=== PATIENT | female | born 1975 | race Caucasian/White ===

== ENCOUNTER → 2017-08-18 12:17 | Outpatient (CLI) | payer OTHER, SELFPAY ==
--- NOTE | 2017-08-18 12:23 | RAD_ITS ---
STUDY: X-RAY - RIGHT KNEE REASON FOR EXAM: Female, 41 years old. Medial knee pain after being hit in knee by a wave TECHNIQUE: 4 view(s) of the knee. COMPARISON: None. FINDINGS: Normal visualized distal femur. Normal visualized proximal tibia and fibula. Normal proximal tibiofibular articulation. Normal medial femorotibial compartment. Normal lateral femorotibial compartment. Normal patellofemoral articulation. The soft tissue structures are unremarkable. RAD/Knee 4 or More Views IMPRESSION: Normal x-ray examination of the knee. Electronically Signed: Magdaleno Gonzalez MD at 17:24 EDT , Service support ,
== END ==
PROVIDERS: Family Provider Family Medicine; PCP Family Medicine; Visit Provider Family Medicine
DX: M25.561 Pain in right knee (principal)
CPT/HCPCS: 73564

== ENCOUNTER 2017-08-30 11:00 | Outpatient (RCR) | payer OTHER, SELFPAY ==
--- NOTE | 2017-08-02 11:45 | HP.PTEVAL_ITS ---
Patient's Visit Information DAPHNEY ALLEN is a 41 year old F referred to Physical Therapy by MD HAILEY David with a diagnosis of ACL SPRAIN. Date of Evaluation: 08/02/17 Physical Therapist: Kenia Garcia - Visit Plan Frequency: 2-3x /Week Duration: 4-6 Weeks Plan: RIGHT KNEE US. CORE STRENGTH AND STABILITY. ALYSE LE ROM, STRETCHING AND STRENGTHENING. NO LAQ'S. HEP INSTRUCTION. - Subjective Subjective: Diagnosis: ACL STRAIN RIGHT. 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 PATIENT WAS DOING CROSS FIT BEFORE INJURING HER KNEE. Disability: NO. Present symptoms: RIGHT MEDIAL KNEE PAIN. Present since: June. Pain Scale: WORST 6/10, LEAST 0/10. Currently: 0/10. Com[place] a [place] STANDING IN THE O[place] WHEN A WAVE CAME. FELT IT POP. Symptoms at onset: RIGHT MEDIAL KNEE. Worse: LALGUS STRESS, TURNING IN BED, TWISTING KNEE. Better: ALEVE, HOT BATH. Disturbed sleep: NO. Previous history/Previous treatment: UNREMARKABLE. Accidents: NO. Unexplained weight loss: NO. Imaging: NONE. PMH: UNREMARKABLE. OTHER: ONE FAMILY PHYSICIAN VISIT. - Objective THIS PATIENT AMBULATES INDEP'LY INTO PT WITHOUT ANY ASSISTIVE DEVICES AND NO OBVIOUS LIMPING. SHE DOES HAVE ALYSE ANKLE VARUS. ALYSE LE LIGHT TOUCH SENSATION IS INTACT AND SYMMETRICAL. LLE ROM AND STRENGTH IS WFL. RIGHT LE STRENGHT: HIP 4/5, KNEE EXT 3-/5, KNEE FLEX 3-/5, ANKLE 5/5. SHE HAS MILD EDEMA LOCALIZED TO THE RIGHT KNEE. IN SUPINE WITH A HEEL SLIDE HER RIGHT KNEE ROM = FULL EXT TO 130 DEG FLEX HOWEVER SHE HAS 140 DEG FLEX ON THE LEFT. SHE HAS GOOD PATELLAR MOBILITY OF THE RIGHT KNEE AND LACHMANS TEST IS DIFFICULT TO PERFORM BUT APPEARS TO BE NEGATIVE. SHE HAS TENDERNESS ALONG THE MEDIAL COLLATERAL LIGAMENT. VARUS AND VALGUS STRESSING IS NEGATIVE. POSITIVE KEY TEST. CORE STRENGTH: POOR. TREATMENT: PATIENT WAS SEEN TODAY FOR US TO THE RIGHT MEDIAL KNEE X 8 MIN AT 50% 1.3 W/CM2 WITH PATINET IN SITTING. HEP INST FOR QS'S , SLR'S AND SLR'S WITH ER FOR VMO ACTIVATION. PATIENT TOLERATED THE US AND EX WELL. - Goals Goal 1:: DECREASE RIGHT KNEE EDEMA Goal Time Frame: 4-6 Weeks Goal 2:: DECEREASE C/O RIGHT KNEE PAIN Goal Time Frame: 4-6 Weeks Goal 3:: IMPROVE RIGHT LE FUNCTIONAL ROM Goal Time Frame: 4-6 Weeks Goal 4:: IMRPOVE RIGHT LE FUNCTIONAL STRENGTH TO ALL FOR RETURN TO PRIOR LEVEL OF FUNCTION. Goal 5:: INDEP HEP FOR CONTINUED IMPROVEMENT ONCE FORMAL PT CONCLUDES. Goal Time Frame: 4-6 Weeks - Rehabilitation Potential Rehabilitation Potential: Good - Anticipated Interventions Patient/Client Instruction: Educate patient on: Condition, Plan of Care, Risk Factors, Benefits of Fitness Program For the Purpose of:: To improve self management Therapeutic Exercise to Include: Strength training, Balance training, Coordination, Agility training, Flexibilty training, Active ROM For the Purpose of:: To improve ability of physical actions for home/community/ work/leisure Cryotherapy (ice pack, ice massage): Yes Ultrasound (thermal/non thermal): Yes For the Purpose of:: To decrease pain, To decrease swelling/inflammation, To increase ROM Thank you for the opportunity to evaluate your patient. For Medicare and Medicare HMO plans, please review the plan of care and approve it. It will need to be FAXED BACK to us at [phone] for Medicare purposes. Please let me know if there are questions or concerns regarding this plan of care. Physician Signature: Date:
--- NOTE | 2017-08-18 14:49 | HP.PTREVAL_ITS ---
Enrique Barry MD, It has been my pleasure to treat DAPHNEY ALLEN over the last 8 visits for ACL SPRAIN. Please see the progress note below for an update on the physical therapy plan of care! Subjective: PATIENT REPORTS SHE IS DOING REALLY GOOD. RIGHT MEDIAL KNEE PAIN IS RANGING 0-1/10. 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 Objective/Function: PATIENT IS MAKING GOOD PROGRESS TOWARD ALL PT GOALS HOWEVER SHE STILL HAS SOME SIGNIFICANT DEFICITS. RIGHT LE STRENGHT: HIP 4/5, KNEE EXT 3-/5, KNEE FLEX 4/5, ANKLE 5/5. SHE HAS MILD EDEMA LOCALIZED TO THE RIGHT KNEE. IN SUPINE WITH A HEEL SLIDE HER RIGHT KNEE ROM = FULL EXT TO 145 DEG FLEX. SHE HAS TENDERNESS ALONG THE MEDIAL COLLATERAL LIGAMENT. RIGHT HIP IR/ER STRENGTH TESTING DOES PROVOKE SOME RIGHT MEDIAL KNEE PAIN. POSITIVE KEY TEST. CORE STRENGTH: POOR. LEFS HAS IMPROVED FROM 60 TO 75. SINGLE LEG CALF RAISING RIGHT LE PROVOKES MILD RIGHT KNEE PAIN. PUSHING UP FROM PARTIAL SQUAT ALSO PROVOKES MILD RIGHT MEDIAL KNEE PAIN. PATIENT IS MAKING GOOD PROGRESS WITH PT BUT STATED CONTINUES TO HAVE DEFICITS IN THE RIGHT KNEE. RECOMMEND CONTINUED PT DUE TO PROGRESS BEING MADE AND ROOM FOR FUTHER IMPROVEMENT AND ALSO RECOMMEND PHYSICIAN FOLLOW UP DUE TO CONTINUED QUAD WEAKNESS. Plan Plan: CONT PER POC - PATIENT IS ALREADY SCHEDULED AND AGREEABLE TO CONTINUING AFTER ASSESSMENT TODAY. RIGHT KNEE US prn. CORE STRENGTH AND STABILITY. ALYSE LE ROM, STRETCHING AND STRENGTHENING. NO LAQ'S. HEP INSTRUCTION. Goals Goal 1:: DECREASE RIGHT KNEE EDEMA Goal Time Frame: 4-6 Weeks Goal Progress: Progressing Goal 2:: DECEREASE C/O RIGHT KNEE PAIN Goal Time Frame: 4-6 Weeks Goal Progress: Progressing Goal 3:: IMPROVE RIGHT LE FUNCTIONAL ROM Goal Time Frame: 4-6 Weeks Goal Progress: Progressing Goal 4:: IMRPOVE RIGHT LE FUNCTIONAL STRENGTH TO ALL FOR RETURN TO PRIOR LEVEL OF FUNCTION. Goal Progress: Progressing Goal 5:: INDEP HEP FOR CONTINUED IMPROVEMENT ONCE FORMAL PT CONCLUDES. Goal Time Frame: 4-6 Weeks Goal Progress: Progressing Anticipated Interventions Patient/Client Instruction: Educate patient on: Condition, Plan of Care, Risk Factors, Benefits of Fitness Program For the Purpose of:: To improve self management Therapeutic Exercise to Include: Strength training, Balance training, Coordination, Agility training, Flexibilty training, Active ROM For the Purpose of:: To improve ability of physical actions for home/community/ work/leisure Cryotherapy (ice pack, ice massage): Yes Ultrasound (thermal/non thermal): Yes For the Purpose of:: To decrease pain, To decrease swelling/inflammation, To increase ROM Please do not hesitate to contact me at [phone] by phone or Fax: if you have questions or concerns regarding this new plan of care! Sincerely, Kenia Garcia
--- NOTE | 2017-08-30 11:45 | HP.PTDCSUM ---
HP - PT D/C Summary It has been my pleasure to treat DAPHNEY ALLEN under orders from Enrique Barry MD, for the diagnosis of ACL SPRAIN for a total of 13 visit(s). Discharge Date: Please see the following information for a summary of their discharge status. - Subjective Subjective: PATIENT REPORTS SHE ISN'T HAVING ANY PROBLEMS. NO COMPLAINTS OR QUESTIONS. - Pain R knee Pain Intensity (Out of 10): 0 - Overall Improvement % Improvement: 99 - Objective Objective/Function: PATIENT HAS MADE GOOD PROGRESS TOWARD ALL PT GOALS. RIGHT LE STRENGHT: HIP 5/5, KNEE EXT 4/5, KNEE FLEX 5/5, ANKLE 5/5. SHE NO LONGER HAS TENDERNESS ALONG THE MEDIAL COLLATERAL LIGAMENT. RIGHT HIP IR/ER STRENGTH TESTING DOES NOT PROVOKE SOME RIGHT MEDIAL KNEE PAIN. CORE STRENGTH: FAIR. LEFS HAS IMPROVED FROM 75 TO 77. SINGLE LEG CALF RAISING RIGHT LE DOES NOT PROVOKE RIGHT KNEE PAIN. PUSHING UP FROM PARTIAL SQUAT ALSO DOES NOT PROVOKE MILD RIGHT MEDIAL KNEE PAIN TODAY. INDEP HEP. - Goals Goal 1:: DECREASE RIGHT KNEE EDEMA Goal Progress: Progressing Goal 2:: DECEREASE C/O RIGHT KNEE PAIN Goal Progress: Progressing Goal 3:: IMPROVE RIGHT LE FUNCTIONAL ROM Goal Progress: Progressing Goal 4:: IMRPOVE RIGHT LE FUNCTIONAL STRENGTH TO ALL FOR RETURN TO PRIOR LEVEL OF FUNCTION. Goal Progress: Progressing Goal 5:: INDEP HEP FOR CONTINUED IMPROVEMENT ONCE FORMAL PT CONCLUDES. Goal Progress: Progressing - Plan Plan: D/C TO HEP AT THIS TIME. INSTRUCTED PATIENT TO FOLLOW UP DR. SHAH IF SHE IS NOT ABLE TO RESUME ALL ACTIVITIES PAINFREE. - D/C Information If there are questions or concerns regarding this patient's physical therapy, please feel free to call me at [phone]. Thank you for the referral of this patient. Sincerely, Kenia Garcia
== END 2017-08-30 19:00 | disposition home or self-care (01) ==
LOC: PT 11:00
PROVIDERS: Family Provider Family Medicine; PCP Family Medicine; Visit Provider Family Medicine
DX: S83.519D Sprain of anterior cruciate ligament of unspecified knee, subsequent encounter (principal)
CPT/HCPCS: 97035; 97110; 97161; 97530

== ENCOUNTER 2021-03-05 18:19 | Outpatient (CLI) | payer OTHER, SELFPAY ==
[2021-03-05] MEDS: 0.9% Saline Lock 10 ML Syringe IV (18:27)
[2021-03-05 18:30] VITALS: BP 124/68; PULSE 70; RESP 16; TEMP 36.9; O2SAT 100; BMI 43.2
--- NOTE | 2021-03-05 19:11 | NURSING ---
Pt c/o of feeling suddenly flushed and nausiated. VS taken. Stable. after a few min feeling went away. Pt requested that rate be slowed. Rate changed from 310 to 200cc/hr.
[2021-03-05 19:12] VITALS: BP 145/75; PULSE 78; RESP 16; TEMP 37; O2SAT 100
[2021-03-05 19:44] VITALS: BP 124/70; PULSE 70; RESP 16; TEMP 37.1; O2SAT 100
[2021-03-05 20:35] VITALS: BP 134/54; PULSE 72; RESP 16; TEMP 37.1; O2SAT 98
== END 2021-03-05 20:35 | disposition home or self-care (01) ==
LOC: MS3OUT 18:21 → MS3 18:22
PROVIDERS: PCP Family Medicine; Referring Provider Nurse Practitioner Adult Health; Visit Provider Nurse Practitioner Adult Health
DX: Z23 Encounter for immunization (principal); U07.1 COVID-19
CPT/HCPCS: J7050; M0245; Q0245; A4216

== ENCOUNTER 2023-11-23 22:30 | Emergency (ER) | payer OTHER, SELFPAY ==
[2023-11-23 22:30] VITALS: BP 132/90; PULSE 78; RESP 17; TEMP 36.4; O2SAT 99
--- NOTE | 2023-11-23 22:50 | RAD_ITS ---
INDICATION: pain EXAMINATION/TECHNIQUE: X-RAY - RIGHT XR Knee Complete 4 Views or More 4 VIEWS COMPARISON: Prior study dated: 08/18/2017 FINDINGS: SOFT TISSUES: No soft tissue swelling or gas. No radiopaque foreign body. BONES/JOINTS: No acute fracture or subluxation.. Normal alignment. Preservation of the joint space.. No sclerotic or destructive changes observed. Ossification adjacent to the medial femoral condyle consistent with a Dragan-Stieda lesion. RAD/Knee 4 or More Views IMPRESSION: No fracture or malalignment. Evidence of previous MCL injury. Electronically Signed: Freedom Deluca MD at 23:19 EDT ,
--- NOTE | 2023-11-23 23:05 | EX.ED.DYSGE1 ---
HPI History of Present Illness Chief Complaint: Lower Extremity Injury Informant: patient and spouse/S.O. Narrative Narrative: Patient is a 48-year-old female with past medical history of asthma. She states around 6 or 7 PM she was just walking across the a flat ground when she fell like her knee bent backwards and gave out on her. She states she was able to catch herself and she did not fall or sustain any injury. However since the event she has had pain and swelling to her right knee and difficulty ambulating and therefore comes in for evaluation [facility] Medical History (Updated 11/23/23 @ 23:[address] Nickolas Carey, DO) Shortness of breath Asthma Home Medications ?Medication ?Instructions ?Recorded ?Last Taken ?Type albuterol sulfate 90 mcg/actuation 2 puff inhalation Q4H PRN PRN 05/29/13 05/29/13 History aerosol inhaler (Ventolin HFA) Allergies fluoxetine 20 mg capsule 40 mg PO DAILY 05/29/13 05/30/13 23:00 History olopatadine 0.2 % eye drops 1 drp PRN PRN Allergies 05/31/13 05/29/13 History (Pataday) fluticasone 250 mcg-salmeterol 50 1 puff inhalation DAILY 09/30/16 Unknown History mcg/dose blistr powdr for inhalation (Advair Diskus) pantoprazole 40 mg tablet,delayed 40 mg PO QHS 09/30/16 Unknown History release fluticasone propionate 50 1 spray intranasal DAILY 03/05/21 Unknown History mcg/actuation nasal spray,suspension (Flonase Allergy Relief) Allergy/AdvReac Type Severity Reaction Status Date / Time cat dander Allergy Mild NEEDS Verified 11/23/23 22:30 FOLLOW-UP house dust mite Allergy NEEDS Verified 11/23/23 22:30 FOLLOW-UP Surgical History History of cholecystectomy History of delivery Social History Smoking Status: Never smoker ROS ROS ED Constitutional Constitutional ED: Denies chills or fever(s) ENT ENT ED: Denies sore throat Cardiovascular Cardiovascular: Denies chest pain Respiratory/Chest Respiratory/Chest: Denies cough or dyspnea Gastrointestinal Gastrointestinal: Denies abdominal pain, diarrhea, nausea or vomiting Genitourinary Genitourinary ED: Denies dysuria Musculoskeletal Musculoskeletal: Reports other Details: Positive right knee pain Integumentary Denies Abrasions or rash Neurologic Neurologic: Denies headache(s) or paresthesias Hematologic/Lymphatic Hematologic/Lymphatic: Denies easy bleeding or easy bruising EXAM Physical Exam Const Vital Signs: 11/23/23 22:30 Temperature 97.5 F L Temperature Source Temporal Pulse Rate 78 Respiratory Rate 17 Blood Pressure 132/90 H Blood Pressure Mean 104 Pulse Ox 99 Oxygen Delivery Method Room Air Positive well nourished, well developed and obese General Appearance ED: well developed; Negative for pallor Nutritional Appearance: obese HEENT HEENT Narrative: Normocephalic atraumatic Eyes PERRL and EOMs intact bilaterally Neck supple Resp normal respiratory effort and clear to auscultation bilaterally Cardio regular rate and regular rhythm Extremity Extremity Narrative: Right lower extremity is neurovascularly intact. Patient has mild soft tissue swelling along the anterior medial aspect of the right knee. There is no obvious bony deformity or joint effusion. No overlying erythema or warmth. The patella tendon is intact. Stressing the ACL PCL MCL and LCL does not reveal any overt laxity. Negative Tai's sign. Remainder of the exam is normal Neuro oriented x3, CN's II-XII intact bilaterally and no sensory deficits noted Sensorium / Orientation: alert Psych mental status grossly normal Skin no rashes or lesions noted Skin Narrative: Mild soft tissue swelling along the anterior and medial aspect of the right knee as documented above. No secondary findings to suggest infection General Skin Exam: Negative for jaundice or pallor MDM MDM MDM Narrative Medical decision making narrative: Patient arrived to the ER mildly hypertensive otherwise with stable vitals. She reported a hyperextension injury while walking to her right knee. Differential diagnosis is for knee sprain versus ligamentous tear versus fracture versus dislocation versus joint effusion. She has no signs of infection and I have low concern for DVT and therefore do not feel there is need for a venous duplex or laboratory studies. An x-ray was obtained which reveals no acute finding and by physical exam there is no patellar tendon injury and no overt ligamentous laxity going against a ligamentous tear. Therefore I feel patient has a grade 1 knee sprain and to be placed in a knee immobilizer and discharged home with outpatient follow-up History & Record Review Discussion w/independent historian: Patient and Significant other Radiography Diagnostic Testing: Clinical Impression(s) from Imaging Studies Knee X-Ray 11/23/23 22:50 IMPRESSION: No fracture or malalignment. Evidence of previous MCL injury. Electronically Signed: Freedom Deluca MD at 23:19 EDT , X-ray of the right knee as interpreted by the emergency medicine physician reveals no acute fracture or dislocation or joint effusion Discharge Plan Triage Chief Complaint: Lower Extremity Injury ED Provider: Nickolas Carey Dx/Rx/DC Orders Clinical Impression: Right knee sprain, Adult BMI 40.0-44.9 kg/sq m, History of asthma Instructions: ED Knee Sprain, ED Knee Sprain Ligaments Prescriptions: No Action fluoxetine 20 MG capsule 40 mg PO DAILY Patient Comments: ANXIETY albuterol sulfate [Ventolin HFA] 1 INHALER inhaler 2 puff inhalation Q4H PRN PRN (Reason: Allergies) olopatadine [Pataday] 2.5 ML drops 1 drp Each Eye PRN PRN (Reason: Allergies) fluticasone propion-salmeterol [Advair Diskus] 1 PUFF inhaler 1 puff inhalation DAILY Patient Comments: ASTHMA pantoprazole 40 MG tablet 40 mg PO QHS Patient Comments: REFLUX fluticasone propionate [Flonase Allergy Relief] 50 mcg/actuation [place],Suspension 1 spray INTRANASAL DAILY Primary Care Provider: Sindy Grubbs Referrals: Sindy Grubbs MD [Primary Care Provider] - Activity Restrictions/Additional Instructions: Please wear your knee brace for stabilization and to help reduce pain and speed healing and help with ambulation. Continue with Tylenol and/or Motrin for pain control. If symptoms or not improving after 5 to 7 days please follow-up with your family doctor to discuss orthopedic referral and return to the ER should you have any further concerns Print Language: Monegasque Disposition Disposition: Home, Self Care
== END 2023-11-24 00:24 | disposition home or self-care (01) ==
LOC: ED 23:14
PROVIDERS: Emergency Provider Emergency Medicine; PCP Family Medicine; Visit Provider Emergency Medicine
DX: S83.91XA Sprain of unspecified site of right knee, initial encounter (principal); Z68.41 Body mass index [BMI] 40.0-44.9, adult; W19.XXXA Unspecified fall, initial encounter; J45.909 Unspecified asthma, uncomplicated; E66.9 Obesity, unspecified
CPT/HCPCS: 73564; 99283

== ENCOUNTER → 2023-12-06 | Outpatient (CLI) | payer OTHER, SELFPAY ==
--- NOTE | 2023-12-06 08:26 | MRI_ITS ---
EXAM: MR RIGHT LOWER EXTREMITY WITHOUT INTRAVENOUS CONTRAST, KNEE CLINICAL INDICATION: RT KNEE SPRAIN TECHNIQUE: Multiplanar and multisequence MR images of the right knee without intravenous contrast. COMPARISON: November 23, 2023 FINDINGS: BONES/JOINTS: Torn posterior root ligament of the medial meniscus. Small amount of suprapatellar joint fluid. No fracture. No abnormal bone marrow signal. No synovial hypertrophy. No intra-articular body. EXTENSOR MECHANISM: Lateral patellar mild subluxation and tilting. Otherwise unremarkable. MEDIAL MENISCUS: See above. LATERAL MENISCUS: Unremarkable. MEDIAL CAPSULE/SUPPORTING STRUCTURES: Unremarkable. Intact. LATERAL CAPSULE/SUPPORTING STRUCTURES: Unremarkable. Lateral collateral ligamentous complex, inclusive of the popliteal tendon, are intact. ANTERIOR CRUCIATE LIGAMENT: Unremarkable. Intact. POSTERIOR CRUCIATE LIGAMENT: Unremarkable. Intact. MUSCLES: Unremarkable. CARTILAGE: Unremarkable. Intact. FLUID: Small amount of fluid anterior to the patella/proximal patellar tendon which may represent bursitis. No joint effusion. No Ortiz''s cyst. OTHER SOFT TISSUES: See above. MRI/Lower Ext Joint Only (Routine) IMPRESSION: 1. Torn posterior root ligament of the medial meniscus. 2. Small amount of fluid anterior to the patella/proximal patellar tendon which may represent bursitis. 3. Small suprapatellar joint effusion with small Ortiz''s cyst. Electronically Signed: Nickolas Walter MD at 23:51 EDT ,
== END | disposition home or self-care (01) ==
PROVIDERS: PCP Family Medicine; Referring Provider Physician Assistant Surgical; Visit Provider Physician Assistant Surgical
DX: S83.8X1A Sprain of other specified parts of right knee, initial encounter (principal)
CPT/HCPCS: 73721

== ENCOUNTER → 2024-01-20 | Outpatient (CLI) | payer OTHER, SELFPAY ==
[2024-01-20 09:50] LABS: Absolute Lymphocyte Count 2.73 X10^3/uL (0.83-4.51); Absolute Neutrophil Count 5.3 X10^3/uL (2.0-7.7); Basophil# 0.05 X10^3/uL; Basophil% 0.6 % (0-1); Eosinophil# 0.16 X10^3/uL; Eosinophils% 1.8 % (0-5); Hemoglobin 12.2 g/dL (12.0-15.0); Lymphocyte # 2.73 X10^3/ul (0.83-4.51); Lymphocyte % 30.7 % (19-41); Mean Corp Hgb Conc 33.9 g/dL (32-36); Mean Corpuscular Hgb 30.3 pg (27.0-32.0); Mean Corpuscular Volume 89.3 fL (81-99); Mean Platelet Vol. 11.7 fl (6.2-12.0); Monocyte% 6.7 % (0-10); NRBC Flagged by Analyzer 0 % (0-5); Neutrophil # 5.31 X10^3/uL (2.7-7.7); Neutrophil % 59.8 % (47-70); Platelet Count 295 K/mm3 (150-450); RBC Distribution Width CV 12.8 % (11.6-14.6); RBC Distribution Width SD 42.5 fl (35.1-43.9); Red Blood Count 4.03 M/mm3 (4.2-5.4); White Blood Count 8.9 K/mm3 (4.4-11.0)
[2024-01-20 10:24] LABS: Anion Gap 3 (5-15); BUN 19 mg/dL (7-18); Calcium,Total 9.4 mg/dL (8.5-10.1); Chloride 107 mmol/L (98-107); Creatinine, Serum 0.86 mg/dL (0.55-1.02); EST Glomerular Filtration Rate 75 mL/min (>60); Est Glom Filt Rate - Afr Amer 91 mL/min (>60); Glucose 81 mg/dL (74-106); Potassium 4.5 mmol/L (3.5-5.1); Sodium Level 137 mmol/L (136-145)
== END | disposition home or self-care (01) ==
LOC: LAB 08:17
PROVIDERS: PCP Family Medicine; Referring Provider Physician Assistant Surgical; Visit Provider Physician Assistant Surgical
DX: Z01.818 Encounter for other preprocedural examination (principal)
CPT/HCPCS: 36415; 80048; 85025

== ENCOUNTER 2024-01-31 11:37 | Day surgery (SDC) | payer OTHER, SELFPAY ==
[2024-01-31] VITALS (12 sets, daily range): BP systolic 126–147; BP diastolic 68–87; PULSE 76–114; RESP 16–18; TEMP 36.2–36.8; O2SAT 95–99; BMI 39.4
--- NOTE | 2024-01-31 11:52 | PRE.ANES_ITS ---
ASA Classification* ASA Classification ASA Classification: 3 Assessment & Plan Anesthesia* Anesthesia Assessment Anesthesia Assessment: Discussed sedation and/or anesthesia options, risks, benefits, and alternatives with patient/parents/legal guardian/POA. Questions invited. The patient/parents/legal guardian/POA seems to understand and agrees to proceed with anesthesia plan. Reviewed the physical assessment, medical history, allergy history and patient home medications list prior to surgery/procedure/anesthetic and documented any changes. Performed airway and anesthesia risk assessments. Anesthesia Type Anesthesia Type: General Anesthesia Focused Assessment* Airway Assessment Mouth opens: >3 cm Mallampati Score: II Focused Labs Anesthesia Preop lab: CBC WBC 8.9 K/mm3 (4.4-11.0) 01/20/24 08:37 RBC 4.03 M/mm3 (4.2-5.4) L 01/20/24 08:37 Hgb 12.2 g/dL (12.0-15.0) 01/20/24 08:37 Hct 36.0 % (37-47) L 01/20/24 08:37 Plt Count 295 K/mm3 (150-450) 01/20/24 08:37 CHEMISTRY Potassium 4.5 mmol/L (3.5-5.1) 01/20/24 08:37 Sodium 137 mmol/L (136-145) 01/20/24 08:37 Phosphorus 3.4 mg/dL (2.5-4.9) 09/21/23 08:22 BUN 19 mg/dL (7-18) H 01/20/24 08:37 Creatinine 0.86 mg/dL (0.55-1.02) 01/20/24 08:37 Glucose 81 mg/dL (74-106) 01/20/24 08:37 COAG Pre-Assessment Diagnosis/Proposed Procedure Planned Operative Procedure(s): RIGHT KNEE ARTHROSCOPIC Anesthesia History 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 When Was Last Pacemaker Check QUESTION #4 FULL TEXT: You/Your Family Experience fever (hyperthermia) with Anesthesia Last Oral Intake Last Oral intake: Last Oral Intake NPO since Meds taken in AM with sips of water? 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 Female Yes 01/20/24 09:07 HX of Motion Sickness No 01/20/24 09:07 HX of N/V After Surgery Yes 01/20/24 09:07 Non-Smoker Yes 01/20/24 09:07 Duration of Surgery greater Yes 01/20/24 09:07 than 60 minutes Number of Risk Factors 4 01/20/24 09:07 PONV Score Severe Risk 01/20/24 09:07 Height & Weight Height & Weight: Anesthesia: Height & Weight Height 5 ft 5 in 01/19/24 11:31 Respiratory Assessment Respiratory Assessment - physics faculty member: Respiratory Tract Infection Hx - physics faculty member Hx Respiratory Tract Infection No 01/20/24 09:07 STOP Sleep Apnea STOP Sleep Apnea - physics faculty member: STOP Sleep Apnea - physics faculty member Hx Hypertension No 01/20/24 09:07 Hx Sleep Apnea No 01/20/24 09:07 CPAP BIPAP Do you snore loudly (louder No 01/20/24 09:07 than talking or can be heard Do you often feel tired/ No 01/20/24 09:07 fatigued/ sleepy during daytime? Has anyone observed you stop No 01/20/24 09:07 breathing during sleep? STOP Results Negative 01/20/24 09:07 QUESTION #5 FULL TEXT : Do you snore loudly (louder than talking or can be heard through closed doors)? 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 Specify any problems Hx of Preganancy in last 3 No 01/20/24 09:07 Months Nurse Filling Out Transfusion [id number] 01/20/24 09:07 & Questions: Date: 01/20/24 01/20/24 09:07 Time: 09:08 01/20/24 09:07 Patient unable to answer at this time (ie. confused, unrespo /Reproduction History /Reproductive History - physics faculty member: /Reproductive Hx- physics faculty member Hx Now Gestational Age (in weeks): EDC: Hx Hx Para Hx Section SAB No 11/23/23 22:30 Active Medications Active Medications: Current Medications Generic Name Dose Route Start Last Admin Trade Name Freq PRN Reason Stop Dose Admin Cefazolin Sodium 2 gm/ Sodium 110 mls @ 150 mls/hr 01/31/24 13:25 Chloride IV 01/31/24 14:08 PREOP ONE Lactated Ringer's 1,000 mls @ 15 mls/hr 01/31/24 11:45 IV .Q48H [facility] Medical History Depression Wears contact lenses Wears glasses Gastric reflux Shortness of breath Asthma Home Medications ?Medication ?Instructions ?Recorded ?Last Taken ?Type albuterol sulfate 90 mcg/actuation 2 puff inhalation Q4H PRN PRN 05/29/13 05/29/13 History aerosol inhaler (Ventolin HFA) Allergies olopatadine 0.2 % eye drops 1 drp PRN PRN Allergies 05/31/13 05/29/13 History (Pataday) fluticasone 250 mcg-salmeterol 50 2 puff inhalation DAILY 09/30/16 Unknown History mcg/dose blistr powdr for inhalation (Advair Diskus) pantoprazole 40 mg tablet,delayed 40 mg PO QHS 09/30/16 Unknown History release fluticasone propionate 50 1 spray intranasal DAILY 03/05/21 Unknown History mcg/actuation nasal spray,suspension (Flonase Allergy Relief) duloxetine 60 mg capsule,delayed 60 mg PO QDAY 01/19/24 Unknown History release Allergy/AdvReac Type Severity Reaction Status Date / Time cat dander Allergy Mild NEEDS Verified 01/20/24 09:04 FOLLOW-UP house dust mite Allergy NEEDS Verified 01/20/24 09:04 FOLLOW-UP Family History Mother Colon polyps Surgical History History of cholecystectomy History of delivery Social History household members: spouse current occupational status: employed current occupation: [employer] Smoking Status: Never smoker substance use type: does not use Review of Systems (Anesthesia) ROS Narrative System reviewed and no additional complaints, except as documented.
[2024-01-31] MEDS: Lactated Ringers 1,000 ML 15 ML IV (12:05)
[2024-01-31] MEDS: Ipratropium/Albuterol Sulfate 3 ML AMPUL.NEB INHALATION (12:26)
[2024-01-31] MEDS: Cefazolin 2 GM in 0.9% Normal Saline (100mL Bag) 100 ML IV (12:47)
[2024-01-31] MEDS: Bupivacaine Mpf 0.5% 30 ML VIAL ×2 (13:14→13:35)
[2024-01-31] MEDS: Epinephrine (1 mg/ml) 1 MG/ML VIAL ×2 (13:15)
--- NOTE | 2024-01-31 14:11 | PCM.OPRPT ---
Report of Operation Date of Procedure: 01/31/24 Description of Surgical Findings:: Preoperative diagnosis: 1. Right knee medial meniscal root tear 2. Right knee chondromalacia Postoperative diagnosis: 1. Right knee medial meniscal root tear 2. Right knee chondromalacia Procedure: Right knee arthroscopic medial meniscal root repair with chondroplasty Surgeon: Kd Barron DO commercial lines account assistant: Jennifer Mckeon PA-C Anesthesia: General LMA Anesthesiologist: Hipolito Michele MD Estimated blood loss: 5 cc Urine output: None recorded Specimen: None Packing/drains: None IV fluids: Per anesthesia record Complications: None apparent Implants: Arthrex 4.75 mm PEEK swivel lock suture anchor Indications: This is a 48-year-old female seen in the outpatient setting for right knee pain. MRI was obtained. MRI demonstrated a meniscal root tear as well as chondromalacia. She had minimal degenerative changes noted on x-ray. I recommended surgical invention in the form of right knee arthroscopic medial meniscal root repair and chondroplasty. I reviewed the risks, benefits, alternatives to procedure with the patient at length and he agreed to proceed. Informed consent obtained in the outpatient setting. Description of procedure: Patient identified preoperative holding area by name, correct number, and date of . The operative extremity was marked. All questions were answered to the patient satisfaction. At time of her procedure, patient brought the operative suite positioned supine on standard operating table. All bony prominences well-padded. General anesthesia was administered and LMA was placed. A well-padded pneumatic tourniquet was applied to the operative upper thigh. An arthroscopic leg morales was placed around the right lower extremity. A well-leg morlaes was placed beneath the patient's left thigh. The foot of the bed was dropped 90 degrees. We prepped and draped the right lower extremity in normal, sterile orthopedic fashion. We performed timeout with all parties in attendance in agreement with the side, site, operation be performed. 2 g Ancef was administered by anesthesia staff prior to tourniquet inflation. I then exsanguinated the right lower extremity with Esmarch bandage. Tourniquet was inflated to 250 mmHg for approximately 7 minutes. Tourniquet was deflated due to a venous tourniquet which resolved after deflation. Esmarch was removed. Standard anterolateral portal was then established 90 degrees of flexion. Blunt tipped trocar was used to enter the knee joint. Knee was filled with normal saline with epinephrine. Arthroscope was then introduced. Patellofemoral joint demonstrated mild grade 1?2 chondromalacia. Medial lateral gutters were unremarkable. Medial compartment was entered with valgus stress. Anterior medial portal was established in standard fashion. Probing the medial meniscus demonstrated full-thickness meniscal root tear. Focal grade III chondromalacia was noted approximately 1 x 1 cm along the medial aspect of the medial femoral condyle. Unstable chondral margin was debrided with the arthroscopic shaver. Tibial cartilage demonstrated grade I chondromalacia. Intercondylar notch was examined and ACL was pristine. Lateral compartment was entered with a [id number] stress. The lateral compartment was probed and the meniscus was stable without significant tearing noted. I then returned to the medial compartment. I elected to proceed with meniscal root repair. I debrided the footprint of the meniscus and decorticated with a rasp. 2 fiber link sutures were passed through the posterior horn 3-4 mm from the tear margin with a [employer] meniscal suture passer. Sutures were then retrieved out an accessory far medial portal. I then introduced the drill guide for the tibial tunnel. This was placed at the king salmon footprint. 2 cm incision was made along the anterior medial tibial crest. I then drilled to our planned trajectory with a flip cutter. The flip cutter was deployed and a 1 cm socket was established in the subchondral bone. A nitinol wire was then passed through the tibial tunnel after the drill was removed. Sutures were shuttled through the tibial tunnel. Sutures were passed through the eyelet of a swivel lock anchor. Approximately 1 cm distal to our tunnel, I drilled and tapped for the swivel lock anchor. Suture was tensioned within the anchor and the anchor was successfully placed with excellent cortical purchase. Sutures were cut. The meniscus was probed and appeared stable. The knee was anesthetized with 10 cc total half percent plain bupivacaine. Portal sites were closed in interrupted [id number] fashion with 3-0 nylon suture. Bulky sterile compression system was applied. Patient was safely awakened in the operative suite and extubated. A T ROM brace was placed locked in full extension and set from 0 to 90 degrees. She was transferred to his gurney and subsequent to PACU in stable condition. She underwent femoral nerve block in the PACU to assist with postoperative analgesia. Need for skilled process assistant: Jennifer Mckeon PA-C was critical to the outcome of the case. During the course of the procedure the physician process assistant played a vital role. Her intimate knowledge of my steps in the procedure aided in safe and expedient completion of the procedure. The PA played a vital role in positioning particularly in obtaining the appropriate positioning. The PA was also vital in the retraction of soft tissues during the exposure and protecting vital structures. The PA was also vital and obtaining meniscus reduction and assisting with hardware placement. She also played a vital role in closure and brace application with my direct supervision. Postoperative plan: Follow-up in 2 weeks for suture removal Nonweightbearing x 6 weeks Range of motion 0-90 degrees x 6 weeks Physical therapy to start next week Aspirin 81 mg twice daily for DVT prophylaxis x 6 weeks Multimodal pain management in the form of Tylenol, NSAIDs, opioid as prescribed
[2024-01-31] MEDS: Ketorolac 15 MG/ML Vial IV (14:21)
--- NOTE | 2024-01-31 14:56 | PCM.POST.ANE ---
Anesthesia: Postop Eval I Current Vital Signs Temperature: 97.8 F Pulse Rate: 111 Blood Pressure: 129/87 Respiratory Rate: 18 Pulse Ox: 97 Oxygen Delivery Method: Room Air Assessment Airway patent: Yes Spontaneous unlabored respirations: Yes Mental status: Awake and Calm nausea: No Vomiting: No Anesthesia Complication: No Fluid Hydration Crystalloid volume administer (ml): 1,000 Total IV fluid infused: 1,000 Progress Note Anesthesia document: Postop Eval 1 completed: Yes
[2024-01-31] MEDS: oxyCODONE 5 MG Tablet PO (15:52)
--- NOTE | 2024-01-31 16:30 | POSTOPAN2_ITS ---
Anesthesia Postop Eval I Sum Postop Eval Completion status Anesthesia document: Postop Eval 1 completed: Yes Anesthesia Postop Eval I Summary Anesthesia Postop Eval I Summary: Anesthesia Postop Eval I: Assessment Summary Airway patent Yes 01/31/24 14:57 INFORMATION SYSTEMS PROJECT [email or web address] Spontaneous unlabored Yes 01/31/24 14:57 INFORMATION SYSTEMS PROJECT [email or web address] respirations Mental status Awake,Calm 01/31/24 14:57 INFORMATION SYSTEMS PROJECT [email or web address] nausea No 01/31/24 14:57 INFORMATION SYSTEMS PROJECT MANAGER.[email or web address] Vomiting No 01/31/24 14:57 INFORMATION SYSTEMS PROJECT MANAGER.[email or web address] Anesthesia Postop Eval I: Fluid Summary Crystalloid volume administer 1,000 01/31/24 14:57 INFORMATION SYSTEMS PROJECT MANAGER.[email or web address] (ml) Colloids volume administered ( ml) Blood Product volume administered (ml) Total IV fluid infused 1,000 01/31/24 14:57 INFORMATION SYSTEMS PROJECT MANAGER.[email or web address] Anesthesia Postop Eval I: Summary Notes Anesthesia Complication No 01/31/24 14:57 INFORMATION SYSTEMS PROJECT MANAGER.[email or web address] Anesthesia Complication Comment: Post-operative progress note Anesthesia: Postop Eval II Evaluation Mental status: Awake Pain Level: 0 nausea: No Vomiting: No
--- NOTE | 2024-01-31 16:30 | PCM.POSTANE2 ---
Anesthesia Postop Eval I Sum Postop Eval Completion status Anesthesia document: Postop Eval 1 completed: Yes Anesthesia Postop Eval I Summary Anesthesia Postop Eval I Summary: Anesthesia Postop Eval I: Assessment Summary Airway patent Yes 01/31/24 14:57 [email or web address] Spontaneous unlabored Yes 01/31/24 14:57 [email or web address] [email or web address] respirations Mental status Awake,Calm 01/31/24 14:57 PRESS [email or web address] nausea No 01/31/24 14:57 PRESS [email or web address].[email or web address] Vomiting No 01/31/24 14:57 PRESS [email or web address] Anesthesia Postop Eval I: Fluid Summary Crystalloid volume administer 1,000 01/31/24 14:57 PRESS [email or web address] (ml) Colloids volume administered ( ml) Blood Product volume administered (ml) Total IV fluid infused 1,000 01/31/24 14:57 PRESS [email or web address].[email or web address] Anesthesia Postop Eval I: Summary Notes Anesthesia Complication No 01/31/24 14:57 PRESS [email or web address] Anesthesia Complication Comment: Post-operative progress note Anesthesia: Postop Eval II Evaluation Mental status: Awake Pain Level: 0 nausea: No Vomiting: No
== END 2024-01-31 16:38 | disposition home or self-care (01) ==
LOC: SDC 11:41 → AC 11:41
PROVIDERS: PCP Family Medicine; Referring Provider Student in an Organized Health Care Education/Training Program; Visit Provider Student in an Organized Health Care Education/Training Program
PROC: (CPT 29870; principal; 2024-01-31 12:40)
DX: S83.241A Other tear of medial meniscus, current injury, right knee, initial encounter (principal); M94.261 Chondromalacia, right knee; Z86.16 Personal history of COVID-19; K21.9 Gastro-esophageal reflux disease without esophagitis; J45.909 Unspecified asthma, uncomplicated; F32.A Depression, unspecified; F41.9 Anxiety disorder, unspecified; Z79.82 Long term (current) use of aspirin; Z90.49 Acquired absence of other specified parts of digestive tract
CPT/HCPCS: 29877; 01400; 94640; C1713; J7120; J2405

== ENCOUNTER 2024-03-20 08:04 | Day surgery (SDC) | payer OTHER, SELFPAY ==
[2024-03-20] VITALS (7 sets, daily range): BP systolic 107–123; BP diastolic 66–77; PULSE 72–94; RESP 16–18; TEMP 35.8–36.7; O2SAT 98–100; BMI 39.5
--- NOTE | 2024-03-20 08:43 | PRE.ANES_ITS ---
ASA Classification* ASA Classification ASA Classification: 3 Assessment & Plan Anesthesia* Anesthesia Assessment Anesthesia Assessment: Discussed sedation and/or anesthesia options, risks, benefits, and alternatives with patient/parents/legal guardian/POA. Questions invited. The patient/parents/legal guardian/POA seems to understand and agrees to proceed with anesthesia plan. Reviewed the physical assessment, medical history, allergy history and patient home medications list prior to surgery/procedure/anesthetic and documented any changes. Performed airway and anesthesia risk assessments. Anesthesia Type Anesthesia Type: MAC Anesthesia Focused Assessment* Airway Assessment Mouth opens: >3 cm Mallampati Score: II Focused Labs Anesthesia Preop lab: CBC WBC 8.9 K/mm3 (4.4-11.0) 01/20/24 08:37 RBC 4.03 M/mm3 (4.2-5.4) L 01/20/24 08:37 Hgb 12.2 g/dL (12.0-15.0) 01/20/24 08:37 Hct 36.0 % (37-47) L 01/20/24 08:37 Plt Count 295 K/mm3 (150-450) 01/20/24 08:37 CHEMISTRY Potassium 4.5 mmol/L (3.5-5.1) 01/20/24 08:37 Sodium 137 mmol/L (136-145) 01/20/24 08:37 Phosphorus 3.4 mg/dL (2.5-4.9) 09/21/23 08:22 BUN 19 mg/dL (7-18) H 01/20/24 08:37 Creatinine 0.86 mg/dL (0.55-1.02) 01/20/24 08:37 Glucose 81 mg/dL (74-106) 01/20/24 08:37 COAG Urine Test Pending 03/20/24 07:10 Pre-Assessment Diagnosis/Proposed Procedure Planned Operative Procedure(s): CSCOPE OA Anesthesia History Anesthesia History - 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 When Was Last Pacemaker Check QUESTION #4 FULL TEXT: You/Your Family Experience fever (hyperthermia) with Anesthesia Last Oral Intake Last Oral intake: Last Oral Intake NPO since Meds taken in AM with sips of water? Meds patient instructed to take am of surgery PONV PONV - bmw sales consultant: PONV - bmw sales consultant Female Yes 03/17/24 10:11 HX of Motion Sickness No 03/17/24 10:11 HX of N/V After Surgery No 03/17/24 10:11 Non-Smoker Yes 03/17/24 10:11 Duration of Surgery greater No 03/17/24 10:11 than 60 minutes Number of Risk Factors 2 03/17/24 10:11 PONV Score Moderate Risk 03/17/24 10:11 Height & Weight Height & Weight: Anesthesia: Height & Weight Height 5 ft 5 in 01/31/24 11:55 Respiratory Assessment Respiratory Assessment - bmw sales consultant: Respiratory Tract Infection Hx - bmw sales consultant Hx Respiratory Tract Infection No 03/17/24 10:11 STOP Sleep Apnea STOP Sleep Apnea - bmw sales consultant: STOP Sleep Apnea - bmw sales consultant Hx Hypertension No 03/17/24 10:11 Hx Sleep Apnea No 03/17/24 10:11 CPAP BIPAP Do you snore loudly (louder No 03/17/24 10:11 than talking or can be heard Do you often feel tired/ No 03/17/24 10:11 fatigued/ sleepy during daytime? Has anyone observed you stop No 03/17/24 10:11 breathing during sleep? STOP Results Negative 03/17/24 10:11 QUESTION #5 FULL TEXT : Do you snore loudly (louder than talking or can be heard through closed doors)? Tobacco Use History Tobacco Use History - bmw sales consultant: Tobacco Use History - bmw sales consultant Tobacco Use Smoking Status Never smoker 03/17/24 10:11 Hx Tobacco Use No 03/17/24 10:11 Years Smoking Packs Smoked per Day Smoking Cessation Date was within the last 15 years Hx Smoking Cessation Date Hx Smoking Cessation Counseling Hematologic Medial History Hematologic Hx - bmw sales consultant: Hematologic Medical Hx - perinatology physician Hx of Blood Transfusion No 03/17/24 10:11 Hx of Transfusion in last 3 No 03/17/24 10:11 Months Date of Last Transfusion (if within last 3 months) Ever experience any problems No 03/17/24 10:11 with transfusion(s)? Specify any problems Hx of Preganancy in last 3 No 03/17/24 10:11 Months Nurse Filling Out Transfusion DSCHRIBER 03/17/24 10:11 & Questions: Date: 03/17/24 03/17/24 10:11 Time: 10:12 03/17/24 10:11 Patient unable to answer at this time (ie. confused, unrespo /Reproduction History /Reproductive History - bmw sales consultant: /Reproductive Hx- bmw sales consultant Hx Now Gestational Age (in weeks): EDC: Hx Hx Para Hx Section SAB No 03/17/24 10:11 PFSH Medical History Depression Wears contact lenses Wears glasses Gastric reflux Shortness of breath Asthma Home Medications ?Medication ?Instructions ?Recorded ?Last Taken ?Type albuterol sulfate 90 mcg/actuation 2 puff inhalation Q4H PRN PRN 05/29/13 05/29/13 History aerosol inhaler (Ventolin HFA) Allergies olopatadine 0.2 % eye drops 1 drp PRN PRN Allergies 05/31/13 05/29/13 History (Pataday) fluticasone 250 mcg-salmeterol 50 2 puff inhalation DAILY 09/30/16 Unknown History mcg/dose blistr powdr for inhalation (Advair Diskus) pantoprazole 40 mg tablet,delayed 40 mg PO QHS 09/30/16 Unknown History release fluticasone propionate 50 1 spray intranasal DAILY 03/05/21 Unknown History mcg/actuation nasal spray,suspension (Flonase Allergy Relief) duloxetine 60 mg capsule,delayed 60 mg PO QDAY 01/19/24 Unknown History release Allergy/AdvReac Type Severity Reaction Status Date / Time cat dander Allergy Mild NEEDS Verified 03/17/24 10:10 FOLLOW-UP house dust mite Allergy NEEDS Verified 03/17/24 10:10 FOLLOW-UP Family History Mother Colon polyps Surgical History Hx of right knee surgery History of cholecystectomy History of delivery Social History household members: spouse current occupational status: employed current occupation: [employer] Smoking Status: Never smoker substance use type: does not use Review of Systems (Anesthesia) ROS Narrative System reviewed and no additional complaints, except as documented.
--- NOTE | 2024-03-20 09:33 | PCM.HP.STD ---
HPI - General General Date of Admission: 03/20/24 Date of Service: 03/20/24 Chief Complaint: Screening colonoscopy HPI Narrative DAPHNEY ALLEN, is a 48 F who presents today for screening colonoscopy. She has not had a colonoscopy in the past. She does not have any abdominal pain, nausea, vomiting or diarrhea. She does have reflux disease which is controlled on medicines. [facility] Medical History Depression Wears contact lenses Wears glasses Gastric reflux Shortness of breath Asthma Home Medications ?Medication ?Instructions ?Recorded ?Last Taken ?Type albuterol sulfate 90 mcg/actuation 2 puff inhalation Q4H PRN PRN 05/29/13 03/13/24 History aerosol inhaler (Ventolin HFA) Allergies olopatadine 0.2 % eye drops 1 drp PRN PRN Allergies 05/31/13 03/17/24 History (Pataday) fluticasone 250 mcg-salmeterol 50 2 puff inhalation DAILY 09/30/16 03/20/24 History mcg/dose blistr powdr for inhalation (Advair Diskus) pantoprazole 40 mg tablet,delayed 40 mg PO QHS 09/30/16 03/19/24 History release fluticasone propionate 50 1 spray intranasal DAILY 03/05/21 03/19/24 History mcg/actuation nasal spray,suspension (Flonase Allergy Relief) duloxetine 60 mg capsule,delayed 60 mg PO QDAY 01/19/24 03/19/24 History release Allergy/AdvReac Type Severity Reaction Status Date / Time cat dander Allergy Mild NEEDS Verified 03/20/24 08:58 FOLLOW-UP house dust mite Allergy NEEDS Verified 03/20/24 08:58 FOLLOW-UP Family History Mother Colon polyps Surgical History Hx of right knee surgery History of cholecystectomy History of delivery Social History household members: spouse current occupational status: employed current occupation: [employer] Smoking Status: Never smoker substance use type: does not use ROS Review of Systems ROS Unobtainable: other Constitutional Constitutional: Denies fatigue, fever(s), poor appetite, weight gain or weight loss ENT HEENT: Denies mouth lesions Cardiovascular Cardiovascular: Denies abdominal bloating, abdominal edema or abdominal pain Respiratory/Chest Respiratory/Chest: Denies change in mental status, change in phlegm color, chest congestion or chest tightness Gastrointestinal Gastrointestinal: Denies belching, bloating, change in bowel habits, change in stool character, chewing difficulty, coffee ground emesis, constipation, cramping, diarrhea, dyspepsia, dysphagia, early satiety, excessive flatus, fecal incontinence, heartburn, hematemesis, hematochezia, hemorrhoids, loose stools, melena, nausea, odynophagia, rectal bleeding, tenesmus, vomiting or weight changes Genitourinary Genitourinary: Denies abdominal discomfort, burning urination or itching Musculoskeletal Musculoskeletal: Reports as per HPI; Denies muscle weakness or myalgias Integumentary Integumentary: Denies jaundice Neurologic Neurologic: Denies lack of coordination or weakness Psychiatric Psychiatric: Denies confusion, depression, memory loss, mood swings, paranoia or suicidal ideation Endocrine Endocrinology: Denies systems reviewed and no addt'l complaints, except as documented Hematologic/Lymphatic Hematologic/Lymphatic: Denies anemia, easy bleeding, easy bruising or lymphadenopathy Allergic/Immunologic Allergic/Immunologic: Denies systems reviewed and no addt'l complaints, except as documented Vital Signs Vital Signs Vital Signs: 03/20/24 08:59 03/20/24 08:59 Temperature 98.1 F Temperature Source Temporal Pulse Rate 94 Respiratory Rate 18 Respiratory Pattern Normal Blood Pressure 123/73 H Blood Pressure Mean 89 Blood Pressure Source Monitor Blood Pressure Position Semi-Fowlers Blood Pressure Location Left Arm Pulse Ox 98 Oxygen Delivery Method Room Air Weight Weight: 237 lb 10.533 oz Body Mass Index (BMI) 39.5 Physical Exam Const alert General Appearance: cooperative Orientation / Consciousness: oriented to person HEENT hearing grossly normal bilaterally Head and Scalp: normal to inspection Face and Sinus: face symmetric Nose: external nose normal Mouth: oral and palatal mucosa normal Eyes conjunctivae normal General Eye: normal appearance of both eyes Neck full ROM General: normal visual inspection Lymph Lymphatic: no lymphadenopathy noted Chest inspection of chest normal and palpation of chest normal Chest: symmetrical chest wall rise Resp normal respiratory effort Effort and Inspection: able to speak in complete sentences Cardio regular rate GI non-distended Percussion: normal to percussion Rectal Exam: deferred Neuro Speech: speech normal Gait (Neuro): normal gait Assessment & Plan Assessment/Plan (1) Encounter for screening for malignant neoplasm of colon: PLAN: She was explained alternatives, risk, benefits include not withstanding bleeding, infection, sepsis, perforation, need for urgent . She will have an ASA of 3.
--- NOTE | 2024-03-20 10:00 | COLBX_PTH ---
PATIENT: DAPHNEY ALLEN LOC: EN U#:[id number] AGE/SX: 48/F ROOM: RE03/20/[address]: Dr. Yannick Izquierdo DO : 1975 BED: DIS: 03/20/2024 SPEC #: [id number] RECD: 03/20/24 13:05 STATUS: SOFI REColeman #: [id number] ERVIN: 03/20/24 10:[address]: Yannick Izquierdo DEPT: SURGICAL PATHOLOGY RECD BY: Leonor Sandy ENTERED: 03/20/24 13:46 SP TYPE: COLON BX OTHR DR: Dr. Sindy Grubbs MD Tissues: Rectum, NOS Procedures: Surgery Specimen Level IV HEADER OPERATION: Colonoscopy, polypectomy PRE-OP DIAGNOSIS: Encounter for screening for malignant neoplasm of colon TISSUE SUBMITTED: Rectum polyp MICROSCOPIC DIAGNOSIS Rectum polyp, biopsy: Hyperplastic polyp. AM.mr 03/21/2024 MICROSCOPIC DESCRIPTION Slides are reviewed. GROSS DESCRIPTION Received in fixative is one container labeled with the patient's name and designated Rectum polyp. The specimen consists of multiple irregular fragments of light wood soft tissue that in aggregate measure 0.8 x 0.3 x 0.1 cm. The specimen is totally submitted in one cassette. 03/20/2024 TC:5 CPT:01618
--- NOTE | 2024-03-20 10:25 | OP.COLON_ITS ---
Patient Name: Nayla Garcia Procedure Date: 03/20/2024 9:58 AM Date of : 1975 Age: 48 Procedure: Colonoscopy Indications: Screening for colorectal malignant neoplasm Providers: Yannick Izquierdo DO Medicines: Monitored Anesthesia Care Patient Profile: This is a 48 year old female. Refer to note in patient chart for documentation of history and physical. Last Colonoscopy: none. The patient's first colonoscopy is today. Complications: No immediate complications. Procedure: Pre-Anesthesia Assessment: - Prior to the procedure, a History and Physical was performed, and patient medications and allergies were reviewed. The patient is competent. The risks and benefits of the procedure and the sedation options and risks were discussed with the patient. All questions were answered and informed consent was obtained. Patient identification and proposed procedure were verified by the physician in the pre-procedure area. Mental Status Examination: normal. Respiratory Examination: clear to auscultation. CV Examination: normal. Prophylactic Antibiotics: The patient does not require prophylactic antibiotics. Prior Anticoagulants: The patient has taken no anticoagulant or antiplatelet agents except for NSAID medication. ASA Grade Assessment: II - A patient with mild systemic disease. After reviewing the risks and benefits, the patient was deemed in satisfactory condition to undergo the procedure. The anesthesia plan was to use monitored anesthesia care (MAC). Immediately prior to administration of medications, the patient was re-assessed for adequacy to receive sedatives. The heart rate, respiratory rate, oxygen saturations, blood pressure, adequacy of pulmonary ventilation, and response to care were monitored throughout the procedure. The physical status of the patient was re-assessed after the procedure. After I obtained informed consent, the scope was passed under direct vision. Throughout the procedure, the patient's blood pressure, pulse, and oxygen saturations were monitored continuously. The Colonoscope was introduced through the anus and advanced to the cecum, identified by appendiceal orifice and ileocecal valve. The colonoscopy was performed without difficulty. The patient tolerated the procedure well. The quality of the bowel preparation was adequate. The ileocecal valve, appendiceal orifice, and rectum were photographed. Scope In: 10:08:29 AM Scope Withdrawal Time 0 hours 9 minutes 2 seconds Scope Out: 10:21:35 AM Total Procedure Duration Time 0 hours 13 minutes 6 seconds Findings: The perianal and digital rectal examinations were normal. A few small-mouthed diverticula were found in the recto-sigmoid colon and sigmoid colon. A 9 mm polyp was found in the rectum. The polyp was sessile. The polyp was removed with a hot snare. Resection and retrieval were complete. Verification of patient identification for the specimen was done. Estimated blood loss was minimal. Impression: - Diverticulosis in the recto-sigmoid colon and in the sigmoid colon. - One 9 mm polyp in the rectum, removed with a hot snare. Resected and retrieved. Recommendation: - Repeat colonoscopy in 5 years for surveillance. - Continue present medications. Procedure Code(s): --- Professional --- 79424, Colonoscopy, flexible; with removal of tumor(s), polyp(s), or other lesion(s) by snare technique CPT copyright 2021 [employer]. All rights reserved. The codes documented in this report are preliminary and upon mine shifter review may be revised to meet current compliance requirements. Yannick Izquierdo DO 03/20/2024 10:25:17 AM This report has been signed electronically. Number of Addenda: 0 Note Initiated On: 03/20/2024 9:58 AM
--- NOTE | 2024-03-20 10:25 | OP.CCLET_ITS ---
03/20/2024 Sindy Grubbs [address] [place] [address] Re : Colonoscopy procedure for Nayla Garcia Dear Dr. Grubbs This procedure was performed on Wednesday, March 20, 2024. My impressions and recommendations are as follows: Impressions : - Diverticulosis in the recto-sigmoid colon and in the sigmoid colon. - One 9 mm polyp in the rectum, removed with a hot snare. Resected and retrieved. Recommendations : - Repeat colonoscopy in 5 years for surveillance. - Continue present medications. My findings are described in the full procedure note, which is enclosed. If I can be of further assistance, please feel free to contact me at . Sincerely, Yannick Izquierdo, 03/20/2024 10:25:17 AM This report has been signed electronically.
--- NOTE | 2024-03-20 10:30 | PCM.POST.ANE ---
Anesthesia: Postop Eval I Current Vital Signs Temperature: 97 F Pulse Rate: 84 Blood Pressure: 112/66 Respiratory Rate: 16 Pulse Ox: 100 Oxygen Delivery Method: Room Air Assessment Airway patent: Yes Spontaneous unlabored respirations: Yes Mental status: Awake and Calm nausea: No Vomiting: No Anesthesia Complication: No Fluid Hydration Crystalloid volume administer (ml): 40 Total IV fluid infused: 40 Progress Note Anesthesia document: Postop Eval 1 completed: Yes
--- NOTE | 2024-03-20 11:09 | PCM.POSTANE2 ---
Anesthesia Postop Eval I Sum Postop Eval Completion status Anesthesia document: Postop Eval 1 completed: Yes Anesthesia Postop Eval I Summary Anesthesia Postop Eval I Summary: Anesthesia Postop Eval I: Assessment Summary Airway patent Yes 03/20/24 10:31 [email or web address] Spontaneous unlabored Yes 03/20/24 10:31 [email or web address] respirations Mental status Awake,Calm 03/20/24 10:31 [email or web address] nausea No 03/20/24 10:31 [email or web address] Vomiting No 03/20/24 10:31 [email or web address] Anesthesia Postop Eval I: Fluid Summary Crystalloid volume administer 40 03/20/24 10:31 [email or web address] (ml) Colloids volume administered ( ml) Blood Product volume administered (ml) Total IV fluid infused 40 03/20/24 10:31 [email or web address] Anesthesia Postop Eval I: Summary Notes Anesthesia Complication No 03/20/24 10:31 [email or web address] Anesthesia Complication Comment: Post-operative progress note Anesthesia: Postop Eval II Evaluation Mental status: Awake Pain Level: 0 nausea: No Vomiting: No
== END 2024-03-20 11:20 | disposition home or self-care (01) ==
LOC: EN 08:06 → AC 08:10
PROVIDERS: PCP Family Medicine; Referring Provider Family Medicine; Visit Provider Internal Medicine Gastroenterology
PROC: 0DJD8ZZ Inspection of Lower Intestinal Tract, Via Natural or Artificial Opening Endoscopic (ICD-10-PCS; CPT 45378; principal; 2024-03-20 09:55)
DX: Z12.11 Encounter for screening for malignant neoplasm of colon (principal); K62.1 Rectal polyp; K57.30 Diverticulosis of large intestine without perforation or abscess without bleeding; K21.9 Gastro-esophageal reflux disease without esophagitis; Z79.899 Other long term (current) drug therapy; Z83.719 Family history of colon polyps, unspecified
CPT/HCPCS: 45385; 88305; A4216; J2405

== ENCOUNTER 2024-05-30 14:30 | Outpatient (RCR) | payer OTHER, SELFPAY ==
--- NOTE | 2024-02-14 18:39 | HP.PTEVAL_ITS ---
Patient's Visit Information Visit Information Visit Information: DAPHNEY ALLEN is a 48 year old F referred to Physical Therapy by PRISCILLA Young with a diagnosis of TEAR OF MEDIAL MENISCUS ,CURRENT INJURY ,UNILATERAL PRIMARY OA. Date of Evaluation: 02/14/24 Physical Therapist: Baldemar Nicolas, PT, Cert MDT, OCS Visit Plan Frequency: 2x /Week Duration: 12 WEEK Plan: s/p right arthroscopic medial meniscal repair root repair with chondroplasty on 01/31/24 NWB RLE with Brace locked in Extension with gait [id number] ROM 0-90 degrees x6 weeks See Guidelines for meniscus root repair ( NO ISOTONIC HAMSTRINGS X12 WEEKS) PT Interventions Intaiily ROM 0-90 degrees 4 ways SLR ( mat ex's) x6 weeks ,progress with strengthening quads/hip open/closed chain strengthening ,gait training ,functional strengthening ,CP Subjective Subjective: This 48 y/o female presents to physical therapy with with s/p right arthroscopic medial meniscal repair root repair with chondroplasty on 01/31/24 at [facility] brace locked with extension when walking and okay 0-90 degrees x6 weeks for ROM and NWB RLE NWB with crutches. Patient was d/c DOS . Patient injury knee with walking October although had injury 2017. Patient had MRI showed root medial tear on Dec 05. Seen DR Barron . Patient has polar care. Patient has limitations with all functional activities and ADL/housework tasks. 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 Patient denies paresthesia in knee. Patient 1 story home with 2steps. Patient has walk in shower and tube shower with seat. 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 Pain Right Knee: Pain Intensity (Out of 10): 2 Pain Intensity Range: 10 Objective Objective: POSTURE:WFL OBSERVATION: knee brace locked in extension SKIN: sutures intact ,mild ecchymosis GAIT: ambulates with NWB RLE with Brace locked in extension with crutches NEURO: denies paraphasia/tingling EDEMA: joint line 48.7 cm AROM: 5 -83 supine knee flexion AROM MMT: ( peak force) 0 quads/hams Balance/Special Test Scores Lower Extremity Functional Score: 13 Goals Goal 1:: Patient to be I with HEP for knee meniscus Goal Time Frame: 8-12 Weeks Goal 2:: Patient to improve AROM supine flexion 0-125 degrees to improve gait Goal Time Frame: 8-12 Weeks Goal 3:: Patient to ambulate with normal rolan Goal Time Frame: 8-12 Weeks Goal 4:: Patient to improve peak force of quads/hams/hip by 15-10 # to improve gait and function Goal Time Frame: 8-12 Weeks Goal 5:: Patient to demonstrate 75% improve with ADLS and RTW Goal Time Frame: 8-12 Weeks Goal 6:: Patient to improve LFES score by 10-15 points to improve QOL and function Goal Time Frame: 8-12 Weeks Rehabilitation Potential Physical Therapy Diagnosis: This patient underwent s/p right arthroscopic medial meniscal repair root repair with chondroplasty on 01/31/24.with decrease gait with NWB RLE ,decrease ROM ,weakness and impairs ADL's and RTW thus benefit from skilled PT. Rehabilitation Potential: Good Anticipated Interventions Patient/Client Instruction: Educate patient on: Condition and Plan of Care For the Purpose of:: To decrease pain, To increase ROM, To improve muscle performance and motor function, To improve ability to perform ADL's, To increase tolerance to activity/condition/position, To improve ability of physical actions for home/community/work/leisure, To improve gait and locomotor functions, To improve health of tissue, To decrease soft tissue restriction, To increase flexibility/ROM, To improve endurance, To improve balance and To improve tolerance to ADL's Therapeutic Exercise to Include: Strength training, Endurance training, Balance training, Flexibilty training, Gait and locomotor training, Passive ROM and Active ROM Comment: quads/hams/hip see Guidelines meniscus root repair For the Purpose of:: To decrease pain, To increase ROM, To improve muscle performance and motor function, To improve ability to perform ADL's, To increase tolerance to activity/condition/position, To improve ability of physical actions for home/community/work/leisure, To improve gait and locomotor functions, To improve health of tissue, To decrease soft tissue restriction, To increase flexibility/ROM, To reduce risk of recurrence and To prevent re-injury TENS: Yes IF ES: Yes Cryotherapy (ice pack, ice massage): Yes Vasopneumatic device: Yes For the Purpose of:: To decrease pain, To decrease swelling/inflammation, To improve nutrient delivery to tissue and To increase oxygenation perfusion Text: Thank you for the opportunity to evaluate your patient. For Medicare and Medicare HMO plans, please review the plan of care and approve it. It will need to be FAXED BACK to us at [phone] for Medicare purposes. For Medicare only, by signing this I certify the plan of care. Please let me know if there are questions or concerns regarding this plan of care. Physician Signature: Date:
--- NOTE | 2024-05-30 15:59 | HP.PTDCSUM ---
Discharge Summary D/C summary: It has been my pleasure to treat DAPHNEY ALLEN referred by PRISCILLA Young, with the diagnosis of TEAR OF MEDIAL MENISCUS ,CURRENT INJURY ,UNILATERAL PRIMARY OA for a total of 30 visit(s). Discharge Date: Please see the following information for a summary of their discharge status. Subjective Subjective: Doing well ready for d/c Pain Right Knee: Pain Intensity (Out of 10): 0 Overall Improvement % Improvement: 85 Objective Objective/Function: GAIT: reciprocal pattern AROM: 0-130 supine knee flexion MMT: ( PEAK FORCE)QUADS 53.1 #,hamstrings 33.1 STAIRS: alteranting no rail Goals Goal 1:: Patient to be I with HEP for knee meniscus Goal Progress: Goal Met Goal 2:: Patient to improve AROM supine flexion 0-125 degrees to improve gait Goal Progress: Goal Met Goal 3:: Patient to ambulate with normal rolan Goal Progress: Goal Met Goal 4:: Patient to improve peak force of quads/hams/hip by 15-10 # to improve gait and function Goal Progress: Goal Met Goal 5:: Patient to demonstrate 75% improve with ADLS and RTW Goal Progress: Goal Met Goal 6:: Patient to improve LFES score by 10-15 points to improve QOL and function Goal Progress: Goal Met Plan Plan: D/C HEP AND GYM PROGRAM D/C Information d/c sentence: If there are questions or concerns regarding this patient's physical therapy, please feel free to call me at [phone]. Thank you for the referral of this patient. Sincerely, Baldemar Nicolas, PT, Cert MDT, OCS Balance/Gait/Functional tests Balance/Special Test Scores Lower Extremity Functional Score: 71 Improvement % Improvement: 85
== END 2024-05-30 19:00 | disposition home or self-care (01) ==
LOC: PT 14:30
PROVIDERS: PCP Family Medicine; Visit Provider Physician Assistant Surgical
DX: S83.241D Other tear of medial meniscus, current injury, right knee, subsequent encounter (principal); S83.8X1D Sprain of other specified parts of right knee, subsequent encounter; M17.11 Unilateral primary osteoarthritis, right knee
CPT/HCPCS: 97110; 97162; 97530